=== PATIENT | male | born 1965 | race Caucasian/White ===

== ENCOUNTER 2020-06-11 07:39 | Outpatient (CLI) | payer OTHER ==
--- NOTE | 2020-06-11 09:00 | MRI ---
EXAM: MRI left shoulder PROVIDED CLINICAL HISTORY: Pain status post injury COMPARISON: None FINDINGS: Full-thickness, full-width retracted insertional tears of the supraspinatus and infraspinatus tendons are demonstrated, with retraction to about the level of the acromioclavicular joint. There is low-grade partial thickness undersurface tearing involving the cranial fibers of the subscapularis at the insertion. Teres minor appears intact. Long head biceps tendon appears intact and normally located. Mild glenohumeral joint effusion, decompressing into the subacromial subdeltoid bursa. No focal artic ular cartilage defect is apparent. Nondisplaced degenerative tearing suspected involving the posterior labrum focally near the equator. There is signal inhomogeneity involving the axillary reces s and posterior aspects of the glenohumeral joint fluid suggesting synovitis. 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 There is supr aspinatus muscular volume loss without fatty infiltration. Rotator cuff muscular volume appears otherwise preserved. Increased signal intensity on fluid sensitive sequences is demonstrated involvin g the infraspinatus muscle compatible with low-grade strain. Regional marrow signal appears unremarkable. IMPRESSION: 1. Massive rotator cuff tear as described. 2. Mild glenohumeral joint effusion and findings suggesting synovitis. 3. Low-grade muscular strain involving infraspinatus. 4. Findings suspicious for nondisplaced degenerative tear involving the posterior labrum.
== END 2020-06-11 07:40 | disposition home or self-care (01) ==
LOC: TBSIIMAG 07:39
PROVIDERS: ATTEND Orthopaedic Surgery
DX: S46.012A Strain of muscle(s) and tendon(s) of the rotator cuff of left shoulder, initial encounter (principal); M25.412 Effusion, left shoulder